=== PATIENT | male | born 1970 | race Caucasian/White ===

== ENCOUNTER 2024-11-30 14:36 | Emergency (ER) | payer SELFPAY ==
[2024-11-30] MEDS: Bacitracin/Neomycin/Polymyxin B Oint 0.9 GM U/D Packet TOP ONE (14:51)
[2024-11-30] MEDS: Lidocaine 2% 5 ML SDV INJECT ONE (14:51)
[2024-11-30] MEDS: Diphtheria,Pertussis(Acell),Tetanus Vaccine 0.5 ML Syringe IM ONE (14:52)
== END 2024-11-30 15:50 | disposition home or self-care (01) ==
LOC: KA.ED 14:36
DX: S61.012A Laceration without foreign body of left thumb without damage to nail, initial encounter (principal); W26.0XXA Contact with knife, initial encounter; Z23 Encounter for immunization
CPT/HCPCS: 12001; 90471; 90715; 99282-25